=== PATIENT | female | born 1985 | race Asian ===

== ENCOUNTER 2025-08-22 16:46 | Emergency (ER) | payer OTHER ==
[~2025-08-22] VITALS: Ht 154.9 cm; Wt 68.2 kg
[2025-08-22] MEDS ORDERED: ESCI-8 PO (16:51)
[2025-08-22 16:53] VITALS: TEMP 97.6
[2025-08-22 18:56] LABS: PLATELET COUNT (AUTO) 225 K/uL (150-450); RED BLOOD CELL COUNT(AUTO) 4.76 MIL/uL (4.00-5.20); RED CELL DISTRIBUTION WIDTH 12.5 % (11.5-14.5); WHITE BLOOD COUNT (AUTO) 10.5 K/uL (4.5-11.0)
[2025-08-22 19:11] LABS: CALCIUM, TOTAL 8.8 mg/dL (8.8-10.5); CREATININE 0.63 mg/dL (0.60-1.30); GLOMERULAR FILTR. RATE CALC > 60 mL/min (>60); GLUCOSE,RANDOM 104 mg/dL (70-110); SODIUM SERUM 138 mmol/L (136-145); UREA NITROGEN, BLOOD 9 mg/dL (7-18)
[2025-08-22 19:25] LABS: ASPARTATE AMINOTRANSFERASE 266.0 U/L (15-37); HCG,QUANTITATIVE 2.0 mIU/mL (0-6); TOTAL PROTEIN, SERUM 7.9 g/dL (6.4-8.2)
[2025-08-22 19:40] LABS: APPEARANCE,URINE HAZY (CLEAR); GLUCOSE, URINE (UA) NEGATIVE (NEGATIVE); LEUKOCYTE ESTERASE ,URINE NEGATIVE (NEGATIVE); NITRATE,URINE NEGATIVE (NEGATIVE); OCCULT BLOOD,URINE NEGATIVE (NEGATIVE); SPECIFIC GRAVITIY, URINE 1.024 (1.003-1.030)
[2025-08-22] MEDS: ONDANSETRON HCL 4 MG/2 ML VIAL IVP ONE (19:42)
[2025-08-22] MEDS: PB/HYOSCY/ATR/SCOP/LIDO/MAALOX 55 ML BOTTLE PO ONE (19:42)
[2025-08-22] MEDS: SODIUM CHLORIDE 0.9% 1,000 ML IV ONE (19:42)
[2025-08-22 21:11] VITALS: BP 110/64; PULSE 88; RESP 18; O2SAT 100
[2025-08-22] MEDS: FAMOTIDINE 20 MG/2 ML VIAL IVP ONE (21:11)
[2025-08-22] MEDS: METOCLOPRAMIDE HCL 5 MG/ML 2 ML VIAL IVP ONE (21:11)
[2025-08-22] MEDS ORDERED: FAMO20 PO (21:44)
[2025-08-22] MEDS ORDERED: ONDA-104 PO (21:44)
[2025-08-25 21:07] LABS: HEPATITIS B CORE IGM Negative (Negative); HEPATITIS C AB (EIA) Non Reactive (Non Reactive)
== END 2025-08-22 22:31 | disposition home or self-care (01) ==
LOC: EMS 16:46
DX: R10.13 Epigastric pain (principal); R11.2 Nausea with vomiting, unspecified; R74.8 Abnormal levels of other serum enzymes; N89.8 Other specified noninflammatory disorders of vagina; F32.A Depression, unspecified; Z79.899 Other long term (current) drug therapy
CPT/HCPCS: 99285; 96374; 96375; 76705; 96361; 80048; 80076; 81003; 82150; 83690; 84702; 85025; 36415; 80074; J1200; J3490; J2765; J2405; J7030